=== PATIENT | male | born 1980 | race Two or more races ===

== ENCOUNTER 2022-04-02 10:13 | Emergency (ER) | payer MEDICAID, OTHER ==
[~2022-04-02] VITALS: Ht 177.8 cm; Wt 86.8 kg
[2022-04-02] MEDS ORDERED: DOCU-94 PO (12:19)
[2022-04-02 13:30] VITALS: BP 121/70
[2022-04-02 14:02] LABS: Urine Bacteria NONE SEEN /hpf (None Seen); Urine Blood Negative /uL (Negative); Urine Specific Gravity 1.005 (1.001-1.035); Urine WBC <1 /hpf (0 - 3)
== END 2022-04-02 13:43 | disposition home or self-care (01) ==
LOC: ER 10:13
DX: K59.00 Constipation, unspecified (principal)
CPT/HCPCS: 81001